=== PATIENT | male | born 1940 | race Caucasian/White ===

== ENCOUNTER 2017-05-12 18:41 | Observation (INO) | payer MEDICARE, BC ==
--- NOTE | 2017-05-12 19:50 | EDM.PDOC ---
ED HPI GENERAL MEDICAL PROBLEM - General Chief Complaint: Upper Extremity Injury/Pain Stated Complaint: FALL VIA NORTH Time Seen by Provider: 05/12/17 18:45 Source of Information: Reports: Patient History Limitations: Reports: No Limitations - History of Present Illness INITIAL COMMENTS - FREE TEXT/NARRATIVE: 76 years old male patient brought in by ambulance. Patient was found in a ground after he had a mechanical fall earlier today. Patient has a history of prostate cancer and he had his chemotherapy today. Also he is on Coumadin for PE. He was walking outside today in his garden and lost his balance and had a mechanical fall. Hit his left arm and was not able to get up again. Denies hitting his head. No loss of consciousness. Denies any headache neck pain or back pain. Denies any chest pain or shortness breath. Denies any visual changes. Denies any abdominal pain diarrhea or constipation. Denies any urinary symptoms. Denies any pain on his legs or right arm. No focal weakness or numbness anywhere. Just complaining of pain on his left upper arm. Was given 0.5 mg of IV Dilaudid by EMS and been markedly improved. Onset: Today Left Upper Arm Pain Score (Numeric/FACES): 2 - Related Data Allergies Allergy/AdvReac Type Severity Reaction Status Date / Time No Known Allergies Allergy Verified 08/09/13 15:10 Home Meds: Home Meds Leuprolide Acetate [Lupron Depot] 22.5 mg IM ASDIRECTED 08/09/13 [History] Calcium Carbonate [Tums] 500 mg PO DAILY 10/21/15 [History] Cholecalciferol (Vitamin D3) [Vitamin D] 1,000 units PO DAILY 10/21/15 [History] Cyanocobalamin (Vitamin B12) [Vitamin B13] 1,000 mcg PO DAILY 10/21/15 [History] PARoxetine [Paxil] 20 mg PO DAILY 10/21/15 [History] Warfarin [Coumadin] 5 mg PO ASDIRECTED 10/21/15 [History] Dexamethasone 1 tab PO DAILY 12/21/15 [History] Lutein/Min/Vit C/Vit E Acetate [Ocuvite Lutein] 1 cap PO DAILY 05/12/17 [History ] Warfarin [Coumadin] 2.5 mg PO DAILY 05/12/17 [History] Past Medical History HEENT History: Reports: Cataract, Glaucoma, Impaired Vision Respiratory History: Reports: PE Genitourinary History: Reports: BPH, Prostate Disorder Musculoskeletal History: Reports: Fracture Neurological History: Reports: Other (See Below) Other Neuro History: poor balance Hematologic History: Reports: Anticoagulation Therapy Oncologic (Cancer) History: Reports: Bone, Prostate, Other (See Below) Other Oncologic History: currently on chemotherapy Dermatologic History: Reports: Other (See Below) Other Dermatologic History: dry skin - Past Surgical History HEENT Surgical History: Reports: Cataract Surgery GI Surgical History: Reports: Appendectomy Musculoskeletal Surgical History: Reports: Hip Replacement Social & Family History - Tobacco Use Smoking Status *Q: Never Smoker Second Hand Smoke Exposure: No - Caffeine Use Caffeine Use: Reports: Coffee - Alcohol Use Days Per Week of Alcohol Use: 0 - Recreational Drug Use Recreational Drug Use: No Review of Systems - Review of Systems Review Of Systems: ROS reveals no pertinent complaints other than HPI. ED EXAM, GENERAL - Physical Exam Exam: See Below Exam Limited By: No Limitations General Appearance: Alert, WD/WN, No Apparent Distress Head: Atraumatic, Normocephalic Neck: Normal Inspection, Supple, Non-Tender, Full Range of Motion Respiratory/Chest: No Respiratory Distress, Lungs Clear, Normal Breath Sounds, No Accessory Muscle Use, Chest Non-Tender Cardiovascular: Normal Peripheral Pulses, Regular Rate, Rhythm, No Edema, No Gallop, No JVD, No Murmur, No Rub GI/Abdominal: Normal Bowel Sounds, Soft, Non-Tender, No Organomegaly, No Distention, No Abnormal Bruit, No Mass Back Exam: Normal Inspection, Full Range of Motion, NT Extremities: Normal Capillary Refill, Arm Pain (Tenderness, swelling, deformity of the left upper arm. CMS intact.). No: Joint Swelling Neurological: Alert, Oriented, CN II-XII Intact, Normal Cognition, Normal Gait, Normal Reflexes, No Motor/Sensory Deficits Psychiatric: Normal Affect, Normal Mood Skin Exam: Warm, Dry, Intact, Normal Color, No Rash Course - Vital Signs Last Recorded V/S: Last Vital Signs Temp 35.9 C 05/12/17 20:31 Pulse 89 05/12/17 20:31 Resp 16 05/12/17 19:47 BP 143/96 H 05/12/17 20:31 Pulse Ox 94 L 05/12/17 20:31 - Orders/Labs/Meds Orders: Active Orders 24 hr Category Date Time Status Head wo Cont [CT] Urgent Exams 05/12/17 19:42 Taken Humerus Lt [CR] Stat Exams 05/12/17 19:45 Taken Labs: Laboratory Tests 05/12/17 05/12/17 05/12/17 Range/Units 20:00 20:00 20:00 WBC 10.1 (4.5-11.0) K/uL RBC 3.45 L (4.30-5.90) M/uL Hgb 9.9 L (12.0-15.0) g/dL Hct 31.4 L (40.0-54.0) % MCV 91 (80-98) fL MCH 29 (27-31) pg MCHC 32 (32-36) % Plt Count 344 (150-400) K/uL Neut % (Auto) 88 H (36-66) % Lymph % (Auto) 6 L (24-44) % [place] % (Auto) 6 (2-6) % Eos % (Auto) 0 L (2-4) % Baso % (Auto) 0 (0-1) % PT 35.5 H (9.5-12.0) sec INR 3.16 H (0.80-1.20) Sodium (140-148) mmol/L Potassium (3.6-5.2) mmol/L Chloride (100-108) mmol/L Carbon Dioxide (21-32) mmol/L Anion Gap (5.0-14.0) mmol/L BUN (7-18) mg/dL Creatinine (0.8-1.3) mg/dL Est Cr Clr Drug Dosing mL/min Estimated GFR (MDRD) (>60) Glucose (74-106) mg/dL Calcium (8.5-10.1) mg/dL Creatine Kinase 69 (39-308) U/L 05/12/17 Range/Units 20:00 WBC (4.5-11.0) K/uL RBC (4.30-5.90) M/uL Hgb (12.0-15.0) g/dL Hct (40.0-54.0) % MCV (80-98) fL MCH (27-31) pg MCHC (32-36) % Plt Count (150-400) K/uL Neut % (Auto) (36-66) % Lymph % (Auto) (24-44) % [place] % (Auto) (2-6) % Eos % (Auto) (2-4) % Baso % (Auto) (0-1) % PT (9.5-12.0) sec INR (0.80-1.20) Sodium 141 (140-148) mmol/L Potassium 4.2 (3.6-5.2) mmol/L Chloride 107 (100-108) mmol/L Carbon Dioxide 26 (21-32) mmol/L Anion Gap 7.8 (5.0-14.0) mmol/L BUN 20 H (7-18) mg/dL Creatinine 0.9 (0.8-1.3) mg/dL Est Cr Clr Drug Dosing 75.44 mL/min Estimated GFR (MDRD) > 60 (>60) Glucose 152 H (74-106) mg/dL Calcium 8.3 L (8.5-10.1) mg/dL Creatine Kinase (39-308) U/L - Re-Assessments/Exams Free Text/Narrative Re-Assessment/Exam: 05/12/17 19:49 Patient was seen and examined shortly after arrival. Stable. Lab and imaging reviewed with the patient. Lab and imaging reviewed with the patient and his at the bedside. X-ray discussed with orthopedic CORNELIA mosqueda from [facility]. She recommended conservative management with arm sling tonight and brace from orthopedic clinic tomorrow for stabilization. An outpatient follow-up. Patient will be admitted because he is very weak, pain control, physical therapy and orthopedic evaluation. Case was discussed with Dr. Pierson the patient's primary physician and he accepted admission for further management. Patient agrees with the plan. Stable for admission. 05/12/17 21:50 Departure - Departure Time of Disposition: 21:54 Disposition: Admitted As Inpatient 65 Condition: Good Clinical Impression: Fracture of humerus - Discharge Information Referrals: Jonnie Pierson Sr, MD [Primary Care Provider] - Forms: ED Department Discharge - My Orders Last 24 Hours: My Active Orders 05/12/17 19:42 Head wo Cont [CT] Urgent 05/12/17 19:45 Humerus Lt [CR] Stat - Assessment/Plan Last 24 Hours: My Active Orders 05/12/17 19:42 Head wo Cont [CT] Urgent 05/12/17 19:45 Humerus Lt [CR] Stat Plan: Admission to Dr. Pierson for further management
[2017-05-12] MEDS ORDERED: Warfarin 5 MG Tab PO SCH (22:15)
--- NOTE | 2017-05-12 22:24 | PCM.HP ---
H&P History of Present Illness - General Date of Service: 05/12/17 Admit Problem/Dx: Admission Diagnosis/Problem Admission Diagnosis/Problem Fracture of distal end of humerus Source of Information: Patient History Limitations: Reports: No Limitations - History of Present Illness Initial Comments - Free Text/Narative: Fell at 3:40 this afternoon and laid on the ground for almost 2 hrs until EMS was called when his came home.He was unable to get up from the ground because of the fracture of the arm. His pain level is minimal unless he moves the arm. He ambulates with a walker and unable to ambulate as he is unable to use the left arm. Location: Reports: Upper Extremity, Left Severity: Moderate Left Upper Arm Pain Score (Numeric/FACES): 2 - Related Data Allergies/Adverse Reactions: Allergies Allergy/AdvReac Type Severity Reaction Status Date / Time No Known Allergies Allergy Verified 08/09/13 15:10 Home Medications: Home Meds Leuprolide Acetate [Lupron Depot] 22.5 mg IM ASDIRECTED 08/09/13 [History] Calcium Carbonate [Tums] 500 mg PO DAILY 10/21/15 [History] Cholecalciferol (Vitamin D3) [Vitamin D] 1,000 units PO DAILY 10/21/15 [History] Cyanocobalamin (Vitamin B12) [Vitamin B13] 1,000 mcg PO DAILY 10/21/15 [History] PARoxetine [Paxil] 20 mg PO DAILY 10/21/15 [History] Warfarin [Coumadin] 5 mg PO ASDIRECTED 10/21/15 [History] Dexamethasone 1 tab PO DAILY 12/21/15 [History] Lutein/Min/Vit C/Vit E Acetate [Ocuvite Lutein] 1 cap PO DAILY 05/12/17 [History ] Warfarin [Coumadin] 2.5 mg PO DAILY 05/12/17 [History] Past Medical History HEENT History: Reports: Cataract, Glaucoma, Impaired Vision Respiratory History: Reports: PE Genitourinary History: Reports: BPH, Prostate Disorder Musculoskeletal History: Reports: Fracture Neurological History: Reports: Other (See Below) Other Neuro History: poor balance Hematologic History: Reports: Anticoagulation Therapy Oncologic (Cancer) History: Reports: Bone, Prostate, Other (See Below) Other Oncologic History: currently on chemotherapy Dermatologic History: Reports: Other (See Below) Other Dermatologic History: dry skin - Past Surgical History HEENT Surgical History: Reports: Cataract Surgery GI Surgical History: Reports: Appendectomy Musculoskeletal Surgical History: Reports: Hip Replacement Social & Family History - Tobacco Use Smoking Status *Q: Never Smoker Second Hand Smoke Exposure: No - Caffeine Use Caffeine Use: Reports: Coffee - Alcohol Use Days Per Week of Alcohol Use: 0 - Recreational Drug Use Recreational Drug Use: No H&P Review of Systems - Review of Systems: Review Of Systems: See Below General: Reports: Weakness, Fatigue HEENT: Reports: No Symptoms Pulmonary: Reports: No Symptoms Cardiovascular: Reports: No Symptoms Gastrointestinal: Reports: No Symptoms Genitourinary: Reports: No Symptoms Musculoskeletal: Reports: Arm Pain Skin: Reports: No Symptoms Psychiatric: Reports: No Symptoms Neurological: Reports: No Symptoms Exam - Exam Exam: See Below - Vital Signs Vital Signs: Last Vital Signs Temp 96.6 F 05/12/17 20:31 Pulse 89 05/12/17 20:31 Resp 16 05/12/17 19:47 BP 143/96 H 05/12/17 20:31 Pulse Ox 94 L 05/12/17 20:31 Weight: 200 lb - Exam General: Alert, Oriented, 4 HEENT: PERRLA, Hearing Intact, Mucosa Moist & [place], Nares Patent, Normal Nasal Septum, Posterior Pharynx Clear, Conjunctiva Clear, EOMI, EACs Clear, TMs Clear Neck: Supple, Trachea Midline, 2 Lungs: Clear to Auscultation, Normal Respiratory Effort Cardiovascular: Regular Rate, Regular Rhythm GI/Abdominal Exam: Normal Bowel Sounds, Soft, Non-Tender, No Organomegaly, No Distention, No Abnormal Bruit, No Mass, Pelvis Stable Extremities: Other (Pain to movement of the left arm ) Skin: Warm Neurological: Cranial Nerves Intact, Reflexes Equal Bilateral Neuro Extensive - Mental Status: Alert, Oriented x3, Normal Mood/Affect, Normal Cognition Neuro Extensive - Motor, Sensory, Reflexes: CN II-XII Intact, Normal Gait, Normal Reflexes Psychiatric: Alert, Normal Affect, Normal Mood - Patient Data Lab Results Last 24 hrs: Laboratory Results - last 24 hr 05/12/17 05/12/17 05/12/17 Range/Units 20:00 20:00 20:00 WBC 10.1 (4.5-11.0) K/uL RBC 3.45 L (4.30-5.90) M/uL Hgb 9.9 L (12.0-15.0) g/dL Hct 31.4 L (40.0-54.0) % MCV 91 (80-98) fL MCH 29 (27-31) pg MCHC 32 (32-36) % Plt Count 344 (150-400) K/uL Neut % (Auto) 88 H (36-66) % Lymph % (Auto) 6 L (24-44) % [place] % (Auto) 6 (2-6) % Eos % (Auto) 0 L (2-4) % Baso % (Auto) 0 (0-1) % PT 35.5 H (9.5-12.0) sec INR 3.16 H (0.80-1.20) Sodium (140-148) mmol/L Potassium (3.6-5.2) mmol/L Chloride (100-108) mmol/L Carbon Dioxide (21-32) mmol/L Anion Gap (5.0-14.0) mmol/L BUN (7-18) mg/dL Creatinine (0.8-1.3) mg/dL Est Cr Clr Drug Dosing mL/min Estimated GFR (MDRD) (>60) Glucose (74-106) mg/dL Calcium (8.5-10.1) mg/dL Creatine Kinase 69 (39-308) U/L 05/12/17 Range/Units 20:00 WBC (4.5-11.0) K/uL RBC (4.30-5.90) M/uL Hgb (12.0-15.0) g/dL Hct (40.0-54.0) % MCV (80-98) fL MCH (27-31) pg MCHC (32-36) % Plt Count (150-400) K/uL Neut % (Auto) (36-66) % Lymph % (Auto) (24-44) % [place] % (Auto) (2-6) % Eos % (Auto) (2-4) % Baso % (Auto) (0-1) % PT (9.5-12.0) sec INR (0.80-1.20) Sodium 141 (140-148) mmol/L Potassium 4.2 (3.6-5.2) mmol/L Chloride 107 (100-108) mmol/L Carbon Dioxide 26 (21-32) mmol/L Anion Gap 7.8 (5.0-14.0) mmol/L BUN 20 H (7-18) mg/dL Creatinine 0.9 (0.8-1.3) mg/dL Est Cr Clr Drug Dosing 75.44 mL/min Estimated GFR (MDRD) > 60 (>60) Glucose 152 H (74-106) mg/dL Calcium 8.3 L (8.5-10.1) mg/dL Creatine Kinase (39-308) U/L Result Diagrams: 05/12/17 20:00 05/12/17 20:00 *Q Meaningful Use (ADM) - VTE *Q VTE Criteria *Q: - Stroke *Q Stroke Criteria *Q: - AMI *Q AMI Criteria *Q: Problem List Initiated/Reviewed/Updated: Yes Orders Last 24hrs: Active Orders 24 hr Category Date Time Status Patient Status [ADT] Routine ADT 05/12/17 22:03 Ordered Ambulate [RC] QID Care 05/12/17 22:03 Ordered Bedrest Bedside Commode [RC] ASDIRECTED Care 05/12/17 22:03 Ordered Height and Weight [RC] UPON Care 05/12/17 22:03 Ordered Intake and Output [RC] QSHIFT Care 05/12/17 22:10 Ordered May Shower [RC] ASDIRECTED Care 05/12/17 22:03 Ordered Oxygen Therapy [RC] PRN Care 05/12/17 22:03 Ordered Up With Assistance [RC] ASDIRECTED Care 05/12/17 22:03 Ordered Up ad Luly [RC] ASDIRECTED Care 05/12/17 22:03 Ordered Up to Chair [RC] QID Care 05/12/17 22:03 Ordered VTE/DVT Education [RC] Per Unit Routine Care 05/12/17 22:03 Ordered Vital Signs [RC] Q4H Care 05/12/17 22:03 Ordered PT Evaluation and Treatment [CONS] Routine Cons 05/12/17 22:03 Ordered Head wo Cont [CT] Urgent Exams 05/12/17 19:42 Taken Humerus Lt [CR] Stat Exams 05/12/17 19:45 Taken INR,PT,PROTHROMBIN TIME [COAG] Stat Lab 05/13/17 05:11 Ordered Calcium Carbonate [Tums] Med 05/13/17 09:00 Ordered 500 mg PO DAILY PARoxetine [Paxil] Med 05/13/17 09:00 Ordered 20 mg PO DAILY Warfarin [Coumadin] Med 05/13/17 09:00 Ordered 2.5 mg PO DAILY Warfarin [Coumadin] Med 05/12/17 22:15 Ordered 5 mg PO ASDIRECTED Resuscitation Status Routine Resus Stat 05/12/17 22:03 Ordered Medication Orders Calcium Carbonate/Glycine (Tums) 500 mg PO DAILY [facility] Paroxetine HCl (Paxil) 20 mg PO DAILY [facility] Warfarin Sodium (Coumadin) 2.5 mg PO DAILY [facility] Warfarin Sodium (Coumadin) 5 mg PO ASDIRECTED [facility] Assessment/Plan Comment:: Assessment/Plan: #1. Fracture of mid shaft of left arm with mild displacement. Will form a splint for the left arm. Get PT to evaluate for safety for ambulation. #2. Ca of Prostate with Mets. #3. S/P PE on anticoagulation Meds. #4. History of depression. On Paroxetine.
--- NOTE | 2017-05-12 22:58 | PCM.OPNOTE ---
- General Post-Op/Procedure Note Date of Surgery/Procedure: 05/12/17 Pre Op Diagnosis: Mid fracture of left humerus Post-Op Diagnosis: Splint formation left humerus. Condition: Good Free Text/Narrative:: Splint formation left arm.
[2017-05-13] MEDS ORDERED: Calcium Carbonate 500 MG Tab.Chew PO PRN (01:00)
[2017-05-13] MEDS ORDERED: Warfarin 2.5 MG Tab PO SCH ×2 (09:00→13:00)
[2017-05-13] MEDS ORDERED: Calcium Carbonate 500 MG Tab.Chew PO SCH (09:00)
--- NOTE | 2017-05-13 09:01 | CR ---
Humerus Lt HISTORY: Injury COMPARISON: None FINDINGS: Fracture of the mid left humerus. There is some relative lucency of the bone in this region which could be from the fracture however underlying lytic bone lesion cannot be entirely excluded. T here is mild displacement.
[2017-05-13] MEDS: PAROXETINE 20 MG PO SCH (09:42)
[2017-05-13] MEDS: Acetaminophen 325 MG Tab PO PRN ×2 (09:42→15:01)
[2017-05-13] MEDS ORDERED: Warfarin 5 MG (PTOM) PO SCH (13:00)
[2017-05-13] MEDS ORDERED: Magnesium Hydroxide 400 MG/5 ML Susp 30 ML Cup PO PRN (14:29)
[2017-05-13] MEDS ORDERED: Phytonadione 5 MG in Sodium Chloride 0.9% 50 ML IV ONE (18:20)
--- NOTE | 2017-05-13 18:31 | PCM.PN ---
- General Info Date of Service: 05/13/17 Functional Status: Reports: Pain Controlled - Review of Systems General: Reports: Weakness HEENT: Reports: No Symptoms Pulmonary: Reports: No Symptoms Cardiovascular: Reports: No Symptoms Gastrointestinal: Reports: No Symptoms Genitourinary: Reports: No Symptoms Musculoskeletal: Reports: No Symptoms Skin: Reports: No Symptoms Psychiatric: Reports: No Symptoms - Patient Data Vitals - Most Recent: Last Vital Signs Temp 98.4 F 05/13/17 14:46 Pulse 91 05/13/17 14:46 Resp 16 05/13/17 14:46 BP 143/79 H 05/13/17 14:46 Pulse Ox 95 05/13/17 14:46 Weight - Most Recent: 199 lb 0.004 oz I&O - Last 24 Hours: Intake & Output 05/13/17 05/13/17 05/13/17 06:59 14:59 22:59 Intake Total 200 620 Output Total 400 550 Balance -200 70 Lab Results Last 24 Hours: Laboratory Results - last 24 hr 05/13/17 05/13/17 Range/Units 00:00 05:32 PT 38.8 H (9.5-12.0) sec INR 3.44 H (0.80-1.20) Urine Color Yellow Urine Appearance Clear Urine pH 6.0 (4.5-8.0) Ur Specific [place] 1.020 (1.008-1.030) Urine Protein Negative (NEGATIVE) mg/dL Urine Glucose (UA) Normal (NEGATIVE) mg/dL Urine Ketones Negative (NEGATIVE) mg/dL Urine Occult Blood Moderate (NEGATIVE) Urine Nitrite Negative (NEGAITVE) Urine Bilirubin Negative (NEGATIVE) Urine Urobilinogen Normal (NORMAL) mg/dL Ur Leukocyte Esterase Negative (NEGATIVE) Med Orders - Current: Current Medications Acetaminophen (Tylenol) 650 mg PO Q4H PRN PRN Reason: Pain Last Admin: 05/13/17 15:01 Dose: 650 mg Calcium Carbonate/Glycine (Tums) 500 mg PO Q2H PRN PRN Reason: Heartburn Last Admin: 05/13/17 01:12 Dose: 500 mg Phytonadione 5 mg/ Sodium (Chloride) 50.5 mls @ 100 mls/hr IV NOW ONE Stop: 05/13/17 18:50 Magnesium Hydroxide (Milk Of Magnesia) 30 ml PO BID PRN PRN Reason: Constipation Last Admin: 05/13/17 15:01 Dose: 30 ml Paroxetine HCl (Paxil) 20 mg PO DAILY [facility] Last Admin: 05/13/17 09:42 Dose: 20 mg Discontinued Medications Calcium Carbonate/Glycine (Tums) 500 mg PO DAILY [facility] Warfarin Sodium (Coumadin) 5 mg PO TuThSa@1300 [facility] Warfarin Sodium (Coumadin) 2.5 mg PO SuMoWeFr@1300 [facility] Last Admin: 05/13/17 12:31 Dose: 2.5 mg - Exam General: Alert, Oriented HEENT: Pupils Equal, Pupils Reactive, EOMI, Mucous Membr. Moist/[place] Neck: Supple Lungs: Clear to Auscultation, Normal Respiratory Effort Cardiovascular: Regular Rate, Regular Rhythm GI/Abdominal Exam: Normal Bowel Sounds, Soft, Non-Tender, No Organomegaly, No Distention, No Abnormal Bruit, No Mass, Pelvis Stable Extremities: Other (Swelling and pain to movement of the left arm. ) Peripheral Pulses: 1+: Radial (L), Radial (R) - Problem List Review Problem List Initiated/Reviewed/Updated: Yes - My Orders Last 24 Hours: My Active Orders 05/13/17 01:00 Calcium Carbonate [Tums] 500 mg PO Q2H PRN 05/13/17 09:00 PARoxetine [Paxil] 20 mg PO DAILY 05/13/17 09:30 Acetaminophen [Tylenol] 650 mg PO Q4H PRN 05/13/17 12:10 OT Evaluation and Treatment [CONS] Routine 05/13/17 12:33 Consult to Physician [CONS] Routine 05/13/17 12:34 Notify Provider Consults [RC] ASDIRECTED 05/13/17 14:29 Magnesium Hydroxide [Milk of Magnesia] 30 ml PO BID PRN 05/13/17 18:20 Phytonadione [AquaMephyton] 5 mg Sodium Chloride 0.9% [Normal Saline] 50 ml IV NOW 05/13/17 Lunch Regular Diet [DIET] 05/14/17 05:11 CBC WITH AUTO DIFF [HEME] Routine INR,PT,PROTHROMBIN TIME [COAG] Routine - Plan Plan:: Assessment/Plan: #1. Fracture of mid shaft of left arm with mild displacement. He had a splint formed last night. I feel that the cause of the fracture is likely to be due partially from Mets from the prostate cancer. I have spoken with the orthopedist from [place] in [place] who will nail the humerus and give it a chance to heal so he could use it soon. It may never heal if cancer is evolved in the fracture site. The other option would be to place him in a custodial and see if it would heal in 4-6 weeks then make a decision if surgery would be indicated. The family and Joseph would like to repair the fracture with a nail which will be done in 2 days after the INR is corrected. He will be transferred to [place] tomorrow PM and have surgery by Dr. Mackey Thursday morning. #2. Ca of Prostate with Mets. #3. S/P PE on anticoagulation Meds. #4. History of depression. On Paroxetine.
[2017-05-14] MEDS ORDERED: Ketorolac 60 MG/2 ML SDV IM ONE (03:23)
[2017-05-14] MEDS: Acetaminophen 325 MG Tab PO PRN (03:48)
[2017-05-14] MEDS ORDERED: Naproxen 250 MG Tab PO SCH ×2 (05:00→09:00)
[2017-05-14] MEDS: PAROXETINE 20 MG PO SCH (08:31)
[2017-05-14] MEDS ORDERED: Enoxaparin 100 MG/1 ML Syringe SUBCUT ONE (09:30)
[2017-05-14] MEDS ORDERED: Warfarin 5 MG (PTOM) PO SCH (13:00)
[2017-05-14 15:17] VITALS: BP 105/54
--- NOTE | 2017-05-14 15:56 | PCM.PN ---
- General Info Date of Service: 05/14/17 - Review of Systems General: Reports: Weakness HEENT: Reports: No Symptoms Pulmonary: Reports: No Symptoms Cardiovascular: Reports: No Symptoms Gastrointestinal: Reports: No Symptoms Genitourinary: Reports: No Symptoms Musculoskeletal: Reports: No Symptoms Skin: Reports: No Symptoms Neurological: Reports: No Symptoms Psychiatric: Reports: No Symptoms - Patient Data Vitals - Most Recent: Last Vital Signs Temp 98.8 F 05/14/17 15:14 Pulse 81 05/14/17 15:14 Resp 17 05/14/17 15:14 BP 105/54 L 05/14/17 15:14 Pulse Ox 96 05/14/17 15:14 Weight - Most Recent: 199 lb 0.004 oz I&O - Last 24 Hours: Intake & Output 05/14/17 05/14/17 05/14/17 06:59 14:59 22:59 Intake Total 1000 Output Total 250 Balance 750 Lab Results Last 24 Hours: Laboratory Results - last 24 hr 05/14/17 05/14/17 Range/Units 05:25 05:25 WBC 5.7 (4.5-11.0) K/uL RBC 3.13 L (4.30-5.90) M/uL Hgb 8.9 L (12.0-15.0) g/dL Hct 28.9 L (40.0-54.0) % MCV 92 (80-98) fL MCH 28 (27-31) pg MCHC 31 L (32-36) % Plt Count 300 (150-400) K/uL Neut % (Auto) 76 H (36-66) % Lymph % (Auto) 17 L (24-44) % [place] % (Auto) 7 H (2-6) % Eos % (Auto) 0 L (2-4) % Baso % (Auto) 0 (0-1) % PT 13.2 H (9.5-12.0) sec INR 1.22 H D (0.80-1.20) Med Orders - Current: Current Medications Acetaminophen (Tylenol) 650 mg PO Q4H PRN PRN Reason: Pain Last Admin: 05/14/17 03:48 Dose: 650 mg Calcium Carbonate/Glycine (Tums) 500 mg PO Q2H PRN PRN Reason: Heartburn Last Admin: 10/11/17 01:12 Dose: 500 mg Magnesium Hydroxide (Milk Of Magnesia) 30 ml PO BID PRN PRN Reason: Constipation Last Admin: 05/13/17 15:01 Dose: 30 ml Paroxetine HCl (Paxil) 20 mg PO DAILY [facility] Last Admin: 05/14/17 08:31 Dose: 20 mg Discontinued Medications Calcium Carbonate/Glycine (Tums) 500 mg PO DAILY [facility] Enoxaparin Sodium (Lovenox) 100 mg SUBCUT ONETIME ONE Stop: 05/14/17 09:31 Last Admin: 05/14/17 10:18 Dose: 100 mg Phytonadione 5 mg/ Sodium (Chloride) 50.5 mls @ 100 mls/hr IV NOW ONE Stop: 05/13/17 18:50 Last Admin: 05/13/17 18:45 Dose: 100 mls/hr Ketorolac Tromethamine (Toradol) 60 mg IM ONETIME ONE Stop: 05/14/17 03:24 Last Admin: 05/14/17 03:48 Dose: 60 mg Naproxen (Naprosyn) 500 mg PO Q12H [facility] Naproxen (Naprosyn) 500 mg PO Q12H [facility] Warfarin Sodium (Coumadin) 5 mg PO TuThSa@1300 [facility] Warfarin Sodium (Coumadin) 2.5 mg PO SuMoWeFr@1300 [facility] Last Admin: 05/13/17 12:31 Dose: 2.5 mg - Exam General: Alert, Oriented HEENT: Pupils Equal Neck: Supple Lungs: Clear to Auscultation, Normal Respiratory Effort Cardiovascular: Regular Rate, Regular Rhythm GI/Abdominal Exam: Normal Bowel Sounds, Soft, Non-Tender, No Organomegaly, No Distention, No Abnormal Bruit, No Mass, Pelvis Stable Extremities: Other (Edema of left arm) Peripheral Pulses: 2+: Radial (L), Radial (R) Skin: Warm, Dry, Intact Psy/Mental Status: Alert, Normal Affect, Normal Mood - Problem List Review Problem List Initiated/Reviewed/Updated: Yes - Plan Plan:: Assessment/Plan: #1. Fracture of mid shaft of left arm with mild displacement. Splint in place. I feel that the cause of the fracture is likely to be due partially from Mets from the prostate cancer. I have spoken with the orthopedist from [place] in [place] who will nail the humerus and give it a chance to heal so he could use it soon. It may never heal if cancer is evolved in the fracture site. The other option would be to place him in a long-term and see if it would heal in 4-6 weeks then make a decision if surgery would be indicated. The family and Joseph would like to repair the fracture with a nail which will be done tomorrow as the INR is corrected. Lovenox was given today. He will be transferred to [place] today and have surgery by Dr. Mackey Thursday morning. #2. Ca of Prostate with Mets. #3. S/P PE on anticoagulation Meds. #4. History of depression. On Paroxetine.
--- NOTE | 2017-05-14 16:02 | PCM.DCSUM1 ---
Discharge Summary - Hospital Course Free Text/Narrative:: Fell at 3:40 the day of admission and laid on the ground for almost 2 hrs until EMS was called when his came home. He was unable to get up from the ground because of the fracture of the arm. His pain level is minimal unless he moves the arm. He ambulates with a walker and unable to ambulate as he is unable to use the left arm. - Discharge Data Discharge Date: 05/14/17 Discharge Disposition: DC/Tfer to Acute Hospital 02 Condition: Good - Patient Summary/Data Consults: Consultations 05/13/17 12:10 OT Evaluation and Treatment [CONS] Routine Please Evaluate and Treat. OT Reason for Consult: ADL's Pending Discharge: Yes Discharge Disposition: Inpatient Rehab Special Instructions: Home Health vs SNF This query below is only for informational purposes and is not editable. Admission Diagnosis/Problem: Fracture of distal end of humerus 05/13/17 12:33 Consult to Physician [CONS] Routine Consulting Provider: Mateusz Ozuna Courtesy Call Completed to Consulting Physician: Yes Reason for Consult: fx left humerus Person Notified: derrick ball Date Notified: 05/13/17 Time Notified: 12:34 Special Instructions: [facility] He was [facility] in the hospital and the INR was corrected as he has a history of PE. The family and the patient wants to have surgery as he is unable to ambulate without using both arms. His INR was corrected to 1.2 today and Lovenox was given this morning. - Patient Instructions Diet: Heart Healthy Diet Activity: As Tolerated - Discharge Plan Home Medications: Home Meds Leuprolide Acetate [Lupron Depot] 22.5 mg IM ASDIRECTED 08/09/13 [History] Calcium Carbonate [Tums] 500 mg PO Q2H PRN 10/21/15 [History] Cholecalciferol (Vitamin D3) [Vitamin D3] 1,000 units PO DAILY 10/21/15 [History ] Cyanocobalamin (Vitamin B12) [Vitamin B12] 1,000 mcg PO DAILY 10/21/15 [History] PARoxetine [Paxil] 20 mg PO DAILY 10/21/15 [History] Warfarin [Coumadin] 5 mg PO ASDIRECTED 10/21/15 [History] Dexamethasone 1 tab PO DAILY 12/21/15 [History] Lutein/Min/Vit C/Vit E Acetate [Ocuvite Lutein] 1 cap PO DAILY 05/12/17 [History ] Forms: ED Department Discharge Referrals: Jonnie Pierson Sr, MD [Primary Care Provider] - - Discharge Summary/Plan Comment DC Time >30 min.: Yes - Patient Data Vitals - Most Recent: Last Vital Signs Temp 98.8 F 05/14/17 15:14 Pulse 81 05/14/17 15:14 Resp 17 05/14/17 15:14 BP 105/54 L 05/14/17 15:14 Pulse Ox 96 05/14/17 15:14 Weight - Most Recent: 199 lb 0.004 oz I&O - Last 24 hours: Intake & Output 05/14/17 05/14/17 05/14/17 06:59 14:59 22:59 Intake Total 1000 Output Total 250 Balance 750 Lab Results - Last 24 hrs: Laboratory Results - last 24 hr 05/14/17 05/14/17 Range/Units 05:25 05:25 WBC 5.7 (4.5-11.0) K/uL RBC 3.13 L (4.30-5.90) M/uL Hgb 8.9 L (12.0-15.0) g/dL Hct 28.9 L (40.0-54.0) % MCV 92 (80-98) fL MCH 28 (27-31) pg MCHC 31 L (32-36) % Plt Count 300 (150-400) K/uL Neut % (Auto) 76 H (36-66) % Lymph % (Auto) 17 L (24-44) % [place] % (Auto) 7 H (2-6) % Eos % (Auto) 0 L (2-4) % Baso % (Auto) 0 (0-1) % PT 13.2 H (9.5-12.0) sec INR 1.22 H D (0.80-1.20) Med Orders - Current: Current Medications Acetaminophen (Tylenol) 650 mg PO Q4H PRN PRN Reason: Pain Last Admin: 05/14/17 03:48 Dose: 650 mg Calcium Carbonate/Glycine (Tums) 500 mg PO Q2H PRN PRN Reason: Heartburn Last Admin: 05/13/17 01:12 Dose: 500 mg Magnesium Hydroxide (Milk Of Magnesia) 30 ml PO BID PRN PRN Reason: Constipation Last Admin: 05/13/17 15:01 Dose: 30 ml Paroxetine HCl (Paxil) 20 mg PO DAILY [facility] Last Admin: 05/14/17 08:31 Dose: 20 mg Discontinued Medications Calcium Carbonate/Glycine (Tums) 500 mg PO DAILY [facility] Enoxaparin Sodium (Lovenox) 100 mg SUBCUT ONETIME ONE Stop: 05/14/17 09:31 Last Admin: 05/14/17 10:18 Dose: 100 mg Phytonadione 5 mg/ Sodium (Chloride) 50.5 mls @ 100 mls/hr IV NOW ONE Stop: 05/13/17 18:50 Last Admin: 05/13/17 18:45 Dose: 100 mls/hr Ketorolac Tromethamine (Toradol) 60 mg IM ONETIME ONE Stop: 05/14/17 03:24 Last Admin: 05/14/17 03:48 Dose: 60 mg Naproxen (Naprosyn) 500 mg PO Q12H [facility] Naproxen (Naprosyn) 500 mg PO Q12H [facility] Warfarin Sodium (Coumadin) 5 mg PO TuThSa@1300 [facility] Warfarin Sodium (Coumadin) 2.5 mg PO SuMoWeFr@1300 [facility] Last Admin: 05/13/17 12:31 Dose: 2.5 mg *Q Meaningful Use (DIS) - VTE *Q VTE Criteria *Q: - Stroke *Q Stroke Criteria *Q: - AMI *Q AMI Criteria *Q:
== END 2017-05-14 17:15 ==
LOC: JP.ED 18:41 → JP.MS 22:03
PROVIDERS: ADMIT Internal Medicine; ATTEND Internal Medicine
DX: S42.302A Unspecified fracture of shaft of humerus, left arm, initial encounter for closed fracture (principal); W19.XXXA Unspecified fall, initial encounter; Z79.899 Other long term (current) drug therapy
CPT/HCPCS: 36415; 70450; 73060; 80048; 81003; 82550; 85025; 85610; 97162; 97165; 97530; 99285; A9270; J1650; J1885; J3430; J7050; 96365; 96372; 99284; G0378